=== PATIENT | female | born 1960 | race Caucasian/White ===

== ENCOUNTER 2017-04-29 21:14 | Emergency (ER) | payer BC, OTHER ==
[~2017-04-29] VITALS: Ht 172.7 cm; Wt 62.2 kg
[~2017-04-29 21:14] MED LIST: ALPH300T PO; BIOF500T PO; BIOT1CAP3 PO; CALCIUM SUPPLEMENT PO; COLO100C PO; FOLI800T PO; GING1CAP2 PO; LUTE15CA PO; MISC1TAB PO; MULTTAB58 PO; OMEG1CAP71 PO; [UNRECOGNIZED DRUG - OTHER] PO; [UNRECOGNIZED DRUG - OTHER] PO; [UNRECOGNIZED DRUG - OTHER] PO
[2017-04-29 21:31] VITALS: TEMP 36.8; Ht 172.7 cm; Wt 62.2 kg
--- NOTE | 2017-04-29 21:56 | EMERGENCY ROOM VISIT NOTE ---
History First contact with patient: 21:42 Chief Complaint: FINGER PAIN Stated Complaint: LEFT HAND, 3RD DIGIT BLUE/PURPLE History of Present Illness The patient is a 57 year old female who presents to the Emergency Room with complaints of discoloration of her left third finger. The patient states that she woke up yesterday and noticed that her left third finger was red and slightly swollen. She had some tingling sensations in the finger throughout the day. She states that today, he finger appears purplish in color. She has some slight pain in the knuckle of the finger. She denies any injury to the finger. She denies any numbness or weakness. She does state that the finger feels slightly stiff. She denies any history of similar symptoms. She denies any fevers/chills or warmth to touch. Review of Systems A complete 10 point review of systems was reviewed with the patient with pertinent positives and negatives as per history of present illness. All else were negative. Social History Smoking Status: Never Smoker Current/Historical Medications Scheduled Alpha-Lipoic Acid (Thioctic Ac (Alpha Lipoic Acid), 1 TAB PO QAM Bioflavonoid Products (Sanjana-C), 1 TAB PO QAM Biotin (Biotin), 2 CAP PO QAM Calcium Carbonate-Vitamin D (Calcium), 2 MG PO DAILY Cephalexin Monohydrate (Keflex), 500 MG PO TID Colostrum (Colostrum), 2 CAP PO QAM Folic Acid (Folic Acid), 1 TAB PO QAM Lutein-Zeaxanthin (Lutein), 2 CAP PO QPM Misc Natural Products (Glucosamine Chondroitin M), 2 TAB PO QAM Multiple Vitamin (Multivitamin), 1 TAB PO QAM [place] 3 Fatty Acids-[place] 6 Fa ([place] 3-6-9 Complex), 3 CAP PO QAM [Nucleo Immune], 2 TAB PO QAM [Ultimate Greenzone], 4 CAP PO QAM [Ultra Pollen], 2 CAP PO QAM Physical Exam Vital Signs Date Time Temp Pulse Resp B/P (MAP) Pulse Ox O2 Delivery O2 Flow Rate FiO2 04/29/17 22:18 71 20 115/74 100 04/29/17 21:31 36.8 70 20 103/61 96 Room Air Physical Exam VITALS: Vitals are noted on the nurse's note and reviewed by myself. Vital signs stable. GENERAL: This is a 57-year-old female, in no acute distress, nondiaphoretic, well-developed well-nourished. MUSCULOSKELETAL: The dorsal aspect of the left third finger is slightly darker in color than the other fingers. The temperature is normal compared to the other fingers. Capillary refill within 2 seconds. No significant tenderness to palpation. Full range of motion of the finger. NEURO: Patient was alert and oriented to person place and time. Normal sensation to light and sharp touch. Medical Decision & Procedures Medical Decision Differential diagnosis includes arterial thrombosis, Raynaud syndrome, cellulitis, among others. The patient was evaluated as above. Her presentation seems to be most consistent with Raynaud syndrome. There is no temperature change or numbness of the finger. There is no significant pain. There is no warmth or significant edema to suggest cellulitis at this time. However, I did choose to give the patient a prescription for Keflex which she may take tomorrow if her symptoms are not improving. The patient was agreeable to this. She will follow -up with her primary care provider as needed. She verbalized understanding of my assessment and treatment plan and was discharged home in good condition. Medication Reconcilliation Current Medication List: was personally reviewed by me Blood Pressure Screening Patient's blood pressure: Normal blood pressure Impression Primary Impression: Discoloration of skin of finger Departure Information Dispostion Home / Self-Care Condition GOOD Prescriptions Cephalexin Monohydrate (Keflex) 500 Mg Cap 500 MG PO TID for 7 Days, #21 CAP Prov: Jyoti Gonzalez ., SHAKILA 04/29/17 Referrals ROSAURA SANTOS D.O. (PCP) Patient Instructions My [facility], Raynaud Disease Additional Instructions Begin the Keflex tomorrow if there is increased redness, swelling, pain or any fevers. Follow-up with your primary care provider for further evaluation.
[2017-04-29] MEDS ORDERED: CALC-51 PO (21:58)
[2017-04-29] MEDS ORDERED: [UNRECOGNIZED DRUG - OTHER] PO (21:58)
[2017-04-29] MEDS ORDERED: CEPH500C PO (22:04)
[2017-04-29 22:18] VITALS: BP 115/74; PULSE 71; O2SAT 100
== END 2017-04-29 22:19 | disposition home or self-care (01) ==
LOC: C.EDB 21:15 → C.EDD 22:19
DX: L81.9 Disorder of pigmentation, unspecified (principal); Z79.899 Other long term (current) drug therapy